=== PATIENT | female | born 1970 | race Caucasian/White ===

== ENCOUNTER 2016-09-18 11:30 | Inpatient (IN) | payer MEDICAID ==
[2016-09-18] VITALS (12 sets, daily range): BP systolic 104–121; BP diastolic 57–71
[~2016-09-18] VITALS: Ht 170.2 cm; Wt 79.3 kg
[2016-09-18] MEDS ORDERED: SODIUM CHLORIDE 0.9% 1,000 ML IV ONE (11:58)
[2016-09-18 12:42] LABS: INR 0.98 (0.9-1.15); Partial Thromboplastin Time 23.9 sec (22.64-33.71); Prothrombin Time 10.7 sec (9.37-12.3)
[2016-09-18 12:44] LABS: Albumin 3.4 g/dL (3.4-5.0); BUN/Creatinine Ratio 11.7; Potassium 4.1 mmol/L (3.5-5.1)
[2016-09-18 12:47] LABS: Bilirubin, Total 0.8 mg/dL (0.2-1.0); Total Protein 6.7 g/dL (6.4-8.2)
[2016-09-18 13:07] LABS: Basophils # (auto) 0 uL; Basophils % (auto) 1.2 % (0.0-2.0); CONDITION Y; DEFINITIVE SEE PRINTOUT; Eosinophils # (auto) 0 uL; Eosinophils % (auto) 1.2 % (0.0-7.0); Hematocrit 11.9 % (36.0-46.0); Lymphocytes # (auto) 0.7 uL; Lymphocytes % (auto) 23.2 % (10.0-50.0); Mean Corpuscular Hemoglobin 18.7 pg (28.0-32.0); Mean Corpuscular Hgb Conc. 30.3 g/dL (32.0-36.0); Mean Corpuscular Volume 61.9 fL (80.0-100.0); Mean Platelet Volume 9.4 fL (7.4-10.4); Monocytes # (auto) 0.3 uL; Monocytes % (auto) 9.4 % (0.0-12.0); Platelet Count (auto) 184 10^3/uL (140-450); White Blood Cell 3.2 10^3/uL (4.4-10.8)
[2016-09-18 13:12] LABS: Hemoglobin 3.6 g/dL (12.2-16.2); Red Cell Distribution Width 21.4 % (11.6-16.0)
[2016-09-18 13:41] LABS: Platelet Estimate Adequate
[2016-09-18 13:42] LABS: Anisocytosis Marked; Hypochromia Marked; Microcytosis Marked
[2016-09-18] MEDS ORDERED: ONDANSETRON HCL 4 MG/2 ML VIAL IV PRN (15:15)
[2016-09-18] MEDS ORDERED: MORPHINE SULF INJ 2 MG/ML SYRINGE 1ML IV PRN (15:15)
[2016-09-18] MEDS ORDERED: NITROGLYCERIN 0.4 MG SL TAB SL PRN (15:15)
[2016-09-18] MEDS: ACETAMINOPHEN 500 MG TAB PO PRN (18:56)
[2016-09-18] MEDS: SODIUM CHLORIDE 0.9% 1,000 ML IV SCH (19:51)
[2016-09-19] VITALS (8 sets, daily range): BP systolic 94–126; BP diastolic 53–70
[2016-09-19 00:58] LABS: Urine Bilirubin Negative (Negative); Urine Color Yellow (Yellow); Urine Glucose Normal (Normal); Urine Ketone Negative (Negative); Urine Nitrite Negative (Negative); Urine RBC <1 /hpf (0 - 4); Urine Squamous Epithelial Cell FEW /hpf (<5); Urine Urobilinogen Normal (Negative)
[2016-09-19 01:00] LABS: Urine Blood 2+ /uL (Negative)
[2016-09-19] MEDS: ACETAMINOPHEN 500 MG TAB PO PRN (07:37)
[2016-09-19 08:06] LABS: Basophils # (auto) 0 uL; Basophils % (auto) 0.8 % (0.0-2.0); CONDITION Y; DEFINITIVE SEE PRINTOUT; Eosinophils # (auto) 0 uL; Eosinophils % (auto) 1.1 % (0.0-7.0); Hematocrit 21.5 % (36.0-46.0); Hemoglobin 7.1 g/dL (12.2-16.2); Lymphocytes # (auto) 0.5 uL; Lymphocytes % (auto) 12.8 % (10.0-50.0); Mean Corpuscular Hemoglobin 24.1 pg (28.0-32.0); Mean Corpuscular Hgb Conc. 33.1 g/dL (32.0-36.0); Mean Corpuscular Volume 72.9 fL (80.0-100.0); Mean Platelet Volume 8.7 fL (7.4-10.4); Monocytes # (auto) 0.4 uL; Monocytes % (auto) 9.6 % (0.0-12.0); Neutrophils # (auto) 3.2 uL; Neutrophils % (auto) 75.7 % (37.0-80.0); Platelet Count (auto) 170 10^3/uL (140-450); SUSPECT SEE PRINTOUT; White Blood Cell 4.3 10^3/uL (4.4-10.8)
[2016-09-19 08:43] LABS: Platelet Estimate Adequate
[2016-09-19 08:44] LABS: Anisocytosis Marked; Hypochromia Marked; Microcytosis Marked; Schistocytes FEW
[2016-09-19] MEDS: SODIUM CHLORIDE 0.9% 1,000 ML IV SCH (11:26)
[2016-09-19 16:23] LABS: Basophils # (auto) 0 uL; Basophils % (auto) 0.8 % (0.0-2.0); CONDITION Y; DEFINITIVE SEE PRINTOUT; Eosinophils # (auto) 0.1 uL; Eosinophils % (auto) 1.6 % (0.0-7.0); Hematocrit 23.7 % (36.0-46.0); Hemoglobin 7.9 g/dL (12.2-16.2); Lymphocytes # (auto) 0.8 uL; Lymphocytes % (auto) 19.2 % (10.0-50.0); Mean Corpuscular Hemoglobin 24.4 pg (28.0-32.0); Mean Corpuscular Hgb Conc. 33.4 g/dL (32.0-36.0); Mean Corpuscular Volume 73.2 fL (80.0-100.0); Mean Platelet Volume 8.9 fL (7.4-10.4); Monocytes # (auto) 0.4 uL; Monocytes % (auto) 9.6 % (0.0-12.0); Neutrophils # (auto) 2.8 uL; Neutrophils % (auto) 68.8 % (37.0-80.0); Platelet Count (auto) 203 10^3/uL (140-450); SUSPECT SEE PRINTOUT; White Blood Cell 4.1 10^3/uL (4.4-10.8)
[2016-09-19 16:32] LABS: INR 0.98 (0.9-1.15); Prothrombin Time 10.7 sec (9.37-12.3)
[2016-09-19 17:07] LABS: Anisocytosis Marked; Hypochromia Moderate
[2016-09-19 17:08] LABS: Ovalocytes FEW; Schistocytes FEW
[2016-09-19 17:09] LABS: Polychromasia Moderate; Stomatocytes Few
[2016-09-19 17:10] LABS: Large Platelets FEW; Platelet Estimate Adequa
[2016-09-20 05:00] VITALS: BP 99/51
[2016-09-20 05:53] LABS: Basophils # (auto) 0 uL; Basophils % (auto) 1.1 % (0.0-2.0); CONDITION Y; DEFINITIVE SEE PRINTOUT; Eosinophils # (auto) 0.1 uL; Eosinophils % (auto) 2.3 % (0.0-7.0); Hematocrit 24.6 % (36.0-46.0); Lymphocytes # (auto) 0.9 uL; Mean Corpuscular Hgb Conc. 32.5 g/dL (32.0-36.0); Mean Corpuscular Volume 73.6 fL (80.0-100.0); Mean Platelet Volume 9.1 fL (7.4-10.4); Monocytes # (auto) 0.4 uL; Monocytes % (auto) 10.8 % (0.0-12.0); Neutrophils # (auto) 2.2 uL; Neutrophils % (auto) 60.8 % (37.0-80.0); Platelet Count (auto) 201 10^3/uL (140-450); SUSPECT SEE PRINTOUT; White Blood Cell 3.7 10^3/uL (4.4-10.8)
[2016-09-20 06:25] LABS: Red Cell Distribution Width 27.4 % (11.6-16.0)
[2016-09-20 07:04] LABS: Partial Thromboplastin Time 26.5 sec (22.64-33.71); Prothrombin Time 10.9 sec (9.37-12.3)
[2016-09-20] MEDS: SODIUM CHLORIDE 0.9% 1,000 ML IV SCH (07:04)
[2016-09-20 08:39] LABS: Platelet Estimate Adequate
[2016-09-20 08:40] LABS: Anisocytosis Slight; Hypochromia Slight
[2016-09-20] MEDS ORDERED: ceFAZolin 1GM/50ML D5W 50 ML IV ONE (08:50)
[2016-09-20 09:00] VITALS: BP 136/69
[2016-09-20] MEDS ORDERED: KETOROLAC TROMETH 30 MG/ML 1ML VIAL IV ONE (09:00)
[2016-09-20] MEDS ORDERED: LABETALOL HCL 5 MG/ML 4ML SYRINGE IV PRN (09:00)
[2016-09-20] MEDS ORDERED: MIDAZOLAM HCL 1MG/1ML-2 ML VIAL IV PRN (09:00)
[2016-09-20] MEDS ORDERED: ONDANSETRON HCL 4 MG/2 ML VIAL IV ONE (09:00)
[2016-09-20] MEDS ORDERED: MORPHINE SULF INJ 2 MG/ML SYRINGE 1ML IV PRN (09:00)
[2016-09-20] MEDS ORDERED: ePHEDrine SULFATE 50 MG/ML AMP IV PRN (09:00)
[2016-09-20] MEDS ORDERED: HYDROmorphone HCL 2 MG/ML VL IV PRN (09:00)
[2016-09-20] MEDS ORDERED: fentaNYL CITRATE 100 MCG/2 ML VL ONE (09:02)
[2016-09-20] MEDS ORDERED: MEPERIDINE HCL (50 MG/ML) 1 ML VIAL ONE (09:02)
[2016-09-20] MEDS ORDERED: MIDAZOLAM HCL 1MG/1ML-2 ML VIAL ONE (09:02)
[2016-09-20] MEDS ORDERED: DEXAMETHASONE SOD PHOS 10MG/1ML VIAL INJ ONE (09:19)
[2016-09-20] MEDS ORDERED: KETOROLAC TROMETH 30 MG/ML 1ML VIAL ONE (09:19)
[2016-09-20] MEDS ORDERED: PROPOFOL 10 MG/ML 20 ML IV ONE (09:19)
[2016-09-20 10:21] VITALS: BP 111/66
== END 2016-09-20 12:54 | disposition home or self-care (01) | DRG 519 ==
LOC: ER 11:30 → TELE 11:31 → TELE-CENTR 23:27
PROVIDERS: ADMIT Internal Medicine Pulmonary Disease; ATTEND Internal Medicine
PROC: 30233N1 Transfusion of Nonautologous Red Blood Cells into Peripheral Vein, Percutaneous Approach (ICD-10-PCS; principal; 2016-09-18)
PROC: 0U5B8ZZ Destruction of Endometrium, Via Natural or Artificial Opening Endoscopic (ICD-10-PCS; 2016-09-20)
PROC: 0UDB8ZZ Extraction of Endometrium, Via Natural or Artificial Opening Endoscopic (ICD-10-PCS; 2016-09-20)
DX: D25.9 Leiomyoma of uterus, unspecified (principal); D62 Acute posthemorrhagic anemia; E83.51 Hypocalcemia; N88.8 Other specified noninflammatory disorders of cervix uteri; N83.201 Unspecified ovarian cyst, right side
CPT/HCPCS: 36415; 36430; 71020; 76856; 80053; 81001; 84702; 85025; 85610; 85730; 86850; 86900; 86901; 86920; 96360; J0690; J1100; J1885; J2250; J2704